=== PATIENT | female | born 1980 | race Caucasian/White ===

== ENCOUNTER 2022-09-04 04:41 | Emergency (ER) | payer OTHER ==
[~2022-09-04] VITALS: Ht 152.4 cm; Wt 60.5 kg
[~2022-09-04 04:41] MED LIST: NOCURR
[2022-09-04] MEDS ORDERED: GEMF600T89 PO (04:44)
[2022-09-04] MEDS ORDERED: METF-446 PO (04:44)
[2022-09-04 06:06] LABS: GLUCOSE,POINT OF CARE 179 MG/DL (70-110)
[2022-09-04] MEDS ORDERED: LIDOCAINE/PF 1% 2 ML VIAL IM ONE (06:45)
[2022-09-04] MEDS ORDERED: PHENAZOPYRIDINE HCL 100 MG TABLET PO ONE (06:45)
[2022-09-04] MEDS ORDERED: CefTRIAXone SODIUM 1 GM/VIAL IM ONE (06:45)
[2022-09-04 07:01] LABS: APPEARANCE,URINE TURBID (CLEAR); BILIRUBIN,URINE NEGATIVE (NEGATIVE); GLUCOSE, URINE (UA) NEGATIVE (NEGATIVE); KETONES,URINE NEGATIVE (NEGATIVE); LEUKOCYTE ESTERASE ,URINE LARGE (NEGATIVE); NITRATE,URINE NEGATIVE (NEGATIVE); OCCULT BLOOD,URINE LARGE (NEGATIVE); PROTEIN,URINE 100-200,SEE CONFIRM mg/dL (NEGATIVE); SPECIFIC GRAVITIY, URINE 1.022 (1.003-1.030); UROBILINOGEN,URINE <=1.0 mg/dL (<=1.0)
[2022-09-04 07:16] VITALS: BP 122/79
[2022-09-04] MEDS ORDERED: PHEN-674 PO (07:16)
[2022-09-04] MEDS ORDERED: CIPR500T10 PO (07:17)
[2022-09-04 07:24] LABS: SULFOSALICYLIC ACID,URINE 3+ (Negative); WBC,URINE 51-100 /HPF (0-5)
[2022-09-04 07:25] LABS: BACTERIA,URINE Few /HPF (None Seen); SQUAMOUS EPITHELIAL CELL,UR Few /LPF (None Seen)
== END 2022-09-04 07:49 | disposition home or self-care (01) ==
LOC: EMS 04:42
DX: N39.0 Urinary tract infection, site not specified (principal)
CPT/HCPCS: 99283; 81001; 81002; 82962; 81025; 96372; J0696; J3490; 82948

== ENCOUNTER 2023-04-12 12:51 | Emergency (ER) | payer OTHER ==
[~2023-04-12] VITALS: Ht 152.4 cm; Wt 59.1 kg
[~2023-04-12 12:51] MED LIST changes: +CIPR500T10 PO; +GEMF600T89 PO; +METF-446 PO; -NOCURR; +PHEN-674 PO
[2023-04-12 13:56] LABS: APPEARANCE,URINE HAZY (CLEAR); BILIRUBIN,URINE NEGATIVE (NEGATIVE); GLUCOSE, URINE (UA) >=1000 mg/dL (NEGATIVE); KETONES,URINE TRACE mg/dL (NEGATIVE); LEUKOCYTE ESTERASE ,URINE LARGE (NEGATIVE); NITRATE,URINE POSITIVE (NEGATIVE); OCCULT BLOOD,URINE MODERATE (NEGATIVE); PH,URINE 5.5 (5.0-8.0); PROTEIN,URINE 100-200,SEE CONFIRM mg/dL (NEGATIVE); UROBILINOGEN,URINE <=1.0 mg/dL (<=1.0)
[2023-04-12 14:03] LABS: BACTERIA,URINE Many /HPF (None Seen); RBC,URINE 51-100 /HPF (0-2); SULFOSALICYLIC ACID,URINE 2+ (Negative); WBC,URINE >100 /HPF (0-5)
[2023-04-12 14:04] LABS: SQUAMOUS EPITHELIAL CELL,UR Many /LPF (None Seen)
[2023-04-12 16:25] LABS: BASOPHILS % (AUTO) 0.3 % (0.0-2.0); HEMATOCRIT 43.9 % (36-46); HEMOGLOBIN 14.4 g/dL (12.0-16.0); LYMPHOCYTES # (AUTO) 1.7 K/uL (1.0-4.8); LYMPHOCYTES % (AUTO) 14.3 % (22.0-44.0); MEAN CORPUSCULAR HEMOGLOBIN 28.5 pg (26.0-34.0); MEAN CORPUSCULAR HGB CONC 32.7 G/dL (31.0-37.0); MEAN CORPUSCULAR VOLUME 87 fL (80-100); MONOCYTES # (AUTO) 0.6 K/uL (0.1-1.0); NEUTROPHILS # (AUTO) 9.5 K/uL (1.8-7.7); NEUTROPHILS % (AUTO) 78.4 % (40.0-70.0); PLATELET COUNT (AUTO) 288 K/uL (150-450); RED BLOOD CELL COUNT(AUTO) 5.05 MIL/uL (4.00-5.20); RED CELL DISTRIBUTION WIDTH 13.7 % (11.5-14.5)
[2023-04-12 16:34] LABS: ANION GAP 11 mmol/L (8-16); CALCIUM, TOTAL 9.3 mg/dL (8.8-10.5); CARBON DIOXIDE 25 mmol/L (22-29); CHLORIDE 99 mmol/L (98-107); CREATININE 0.63 mg/dL (0.60-1.30); GLOMERULAR FILTR. RATE CALC > 60 mL/min (>60); GLUCOSE,RANDOM 281 mg/dL (70-110); POTASSIUM 3.9 mmol/L (3.5-5.1); SODIUM SERUM 135 mmol/L (136-145)
[2023-04-12 16:45] LABS: ALANINE AMINOTRANSFERASE 38 U/L (12-78); ALBUMIN 4.1 g/dL (3.4-5.0); ALKALINE PHOSPHATASE 108 U/L (46-116); ASPARTATE AMINOTRANSFERASE 19 U/L (15-37); BILIRUBIN,TOTAL 0.5 mg/dL (0.1-1.0); HCG,QUANTITATIVE < 1 mIU/mL (0-6); LIPASE 80 U/L (73-393); TOTAL PROTEIN, SERUM 8.7 g/dL (6.4-8.2)
[2023-04-12] MEDS ORDERED: CEPHALEXIN MONOHYDRATE 500 MG CAPSULE PO ONE (17:15)
[2023-04-12] MEDS ORDERED: SODIUM CHLORIDE 0.9% 1,000 ML IV ONE (17:30)
[2023-04-12] MEDS ORDERED: CEPH-558 PO (18:24)
[2023-04-12 18:45] VITALS: BP 127/73
== END 2023-04-12 18:51 | disposition home or self-care (01) ==
LOC: EMS 12:51
DX: N39.0 Urinary tract infection, site not specified (principal); E11.9 Type 2 diabetes mellitus without complications; Z90.49 Acquired absence of other specified parts of digestive tract; Z98.890 Other specified postprocedural states
CPT/HCPCS: 80053; 81001; 81002; 83690; 84702; 85025; 87086; 87186; 96360; 99283; 36415-L1; 36415-TC